=== PATIENT | male | born 1995 | race Caucasian/White ===

== ENCOUNTER 2017-03-21 05:14 | Inpatient (IN) | payer OTHER ==
[2017-03-21] MEDS ORDERED: HYDROCODONE/APAP (5/325) TAB PO (07:00)
[2017-03-21] MEDS ORDERED: ONDANSETRON 4 MG INJ IV (07:00)
[2017-03-21] MEDS ORDERED: ACETAMINOPHEN 325 MG TAB PO (07:00)
[2017-03-21] MEDS: NICOTINE (14 MG/24 HR) PATCH TRANSDERM (09:00)
[2017-03-21 13:59] LABS: ADD MAN DIFF? NO
[2017-03-21 14:01] LABS: WHITE BLOOD COUNT 6.2 10^3/ul (4.8-10.8)
[2017-03-21 14:01] LABS: BASOPHIL # 0.1 10^3/ul (0.0-0.1); EOSINOPHILS # 0.2 10^3/ul (0.0-0.5); EOSINOPHILS % 3.1 % (0.0-7.0); HEMATOCRIT 35.7 % (42.0-52.0); HEMOGLOBIN 12.8 g/dl (14.0-18.0); LYMPHOCYTES # 1.9 10^3/ul (0.8-2.9); LYMPHOCYTES % 30.6 % (15.0-51.0); MEAN CORPUSCULAR HEMOGLOBIN 31.2 pg (29.0-33.0); MEAN CORPUSCULAR HGB CONC 35.9 g/dl (32.0-37.0); MEAN CORPUSCULAR VOLUME 87.1 fl (82.0-101.0); MEAN PLATELET VOLUME 10.5 fl (7.4-10.4); MONOCYTE # 0.7 10^3/ul (0.3-0.9); MONOCYTES % 10.7 % (0.0-11.0); NEUTROPHIL # 3.4 10^3/ul (1.6-7.5); NEUTROPHILS % 54.4 % (39.0-77.0); PLATELET COUNT 232 10^3/UL (140-415)
[2017-03-21 14:18] LABS: ANION GAP 16 (8-16); BLOOD UREA NITROGEN 36 mg/dl (7-20); CALCIUM 9.3 mg/dl (8.4-10.2); CARBON DIOXIDE 24 mmol/L (21-31); CHLORIDE 109 mmol/L (97-110); CREATINE KINASE 48 IU/L (23-200); CREATININE 3.06 mg/dl (0.61-1.24); GLUCOSE 101 mg/dl (70-220); MAGNESIUM 1.8 mg/dl (1.7-2.5); SODIUM 145 mmol/L (135-144)
[2017-03-21 14:27] LABS: B-TYPE NATRIURETIC PEPTIDE 592 PG/ML (0-125)
[2017-03-21] MEDS: SOD CHLORIDE 0.9% 1,000 ML IV (15:00)
[2017-03-21 22:48] LABS: ADD UMIC NO; UR ASCORBIC ACID NEGATIVE (NEGATIVE); UR BILIRUBIN (Dip) NEGATIVE (NEGATIVE); UR BLOOD (Dip) NEGATIVE (NEGATIVE); UR CLARITY CLEAR (CLEAR); UR COLOR STRAW (YELLOW); UR GLUCOSE (Dip) NEGATIVE (NEGATIVE); UR KETONES (Dip) NEGATIVE (NEGATIVE); UR LEUKOCYTE ESTERASE (Dip) NEGATIVE Leu/ul (NEGATIVE); UR NITRITE (Dip) NEGATIVE (NEGATIVE); UR SPECIFIC GRAVITY (Dip) 1.008 (1.003-1.030); UR TOTAL PROTEIN (Dip) NEGATIVE (NEGATIVE); UR UROBILINOGEN (Dip) NEGATIVE (NEGATIVE)
[2017-03-21 23:02] LABS: SODIUM,URINE RANDOM 73 mmol/L (30-90)
[2017-03-22] MEDS: SOD CHLORIDE 0.9% 1,000 ML IV (01:55)
[2017-03-22 05:55] LABS: MAGNESIUM 1.5 mg/dl (1.7-2.5)
[2017-03-22 05:57] LABS: ANION GAP 14 (8-16); BLOOD UREA NITROGEN 27 mg/dl (7-20); CALCIUM 8.9 mg/dl (8.4-10.2); CARBON DIOXIDE 26 mmol/L (21-31); CHLORIDE 110 mmol/L (97-110); CREATININE 2.02 mg/dl (0.61-1.24); GLUCOSE 122 mg/dl (70-220); POTASSIUM 3.5 mmol/L (3.5-5.1); SODIUM 146 mmol/L (135-144)
[2017-03-22] MEDS: NICOTINE (14 MG/24 HR) PATCH TRANSDERM (08:47)
[2017-03-22] MEDS: SOD CHLORIDE 0.45% 1,000 ML IV ×2 (11:13→23:08)
[2017-03-22] MEDS: MAGNESIUM SULFATE 3 GM in DEXTROSE 5% 100 ML IVPB (11:13)
[2017-03-23] MEDS: SOD CHLORIDE 0.45% 1,000 ML IV ×2 (05:30→10:36)
[2017-03-23 05:40] LABS: PHOSPHORUS 2.5 mg/dl (2.5-4.9)
[2017-03-23 05:40] LABS: MAGNESIUM 1.6 mg/dl (1.7-2.5)
[2017-03-23 05:43] LABS: ANION GAP 12 (8-16); BLOOD UREA NITROGEN 18 mg/dl (7-20); CALCIUM 9.4 mg/dl (8.4-10.2); CARBON DIOXIDE 28 mmol/L (21-31); CHLORIDE 106 mmol/L (97-110); CREATININE 1.37 mg/dl (0.61-1.24); GLUCOSE 131 mg/dl (70-220); POTASSIUM 4.1 mmol/L (3.5-5.1); SODIUM 142 mmol/L (135-144)
[2017-03-23] MEDS: NICOTINE (14 MG/24 HR) PATCH TRANSDERM (09:00)
[2017-03-23] MEDS: MAGNESIUM SULFATE 4 GM/100 ML 100 ML IVPB (10:35)
[2017-03-24 05:50] LABS: ANION GAP 12 (8-16); B-TYPE NATRIURETIC PEPTIDE 138 PG/ML (0-125); BLOOD UREA NITROGEN 15 mg/dl (7-20); CALCIUM 9.2 mg/dl (8.4-10.2); CARBON DIOXIDE 29 mmol/L (21-31); CHLORIDE 107 mmol/L (97-110); GLUCOSE 111 mg/dl (70-220); POTASSIUM 4.3 mmol/L (3.5-5.1); SODIUM 144 mmol/L (135-144)
[2017-03-24] MEDS: NICOTINE (14 MG/24 HR) PATCH TRANSDERM (09:00)
== END 2017-03-24 13:25 | disposition home or self-care (01) | DRG 683 ==
LOC: MS1 05:14
DX: N17.9 Acute kidney failure, unspecified (principal); E87.0 Hyperosmolality and hypernatremia; R00.1 Bradycardia, unspecified; F12.10 Cannabis abuse, uncomplicated; Z87.891 Personal history of nicotine dependence
CPT/HCPCS: 76775; 80048; 81003; 82550; 83735; 83880; 84100; 84300; 85025; 93306

== ENCOUNTER 2018-06-05 21:27 | Emergency (ER) | payer OTHER ==
[2018-06-06] MEDS: IBUPROFEN 600 MG TAB PO (01:31)
== END 2018-06-06 01:49 | disposition home or self-care (01) ==
LOC: FTE 21:27
DX: K62.89 Other specified diseases of anus and rectum (principal); F17.210 Nicotine dependence, cigarettes, uncomplicated
CPT/HCPCS: 99282; Z7502

== ENCOUNTER 2018-06-11 09:07 | Emergency (ER) | payer OTHER ==
[2018-06-11] MEDS: SOD CHLORIDE 0.9% 1,000 ML IV (10:11)
[2018-06-11 10:15] LABS: ADD MAN DIFF? NO
[2018-06-11 10:18] LABS: WHITE BLOOD COUNT 5.6 10^3/ul (4.8-10.8)
[2018-06-11 10:18] LABS: BASOPHIL # 0.1 10^3/ul (0.0-0.1); BASOPHILS % 0.9 % (0.0-2.0); EOSINOPHILS # 0.1 10^3/ul (0.0-0.5); EOSINOPHILS % 2.2 % (0.0-7.0); HEMATOCRIT 47.4 % (42.0-52.0); HEMOGLOBIN 16.4 g/dl (14.0-18.0); LYMPHOCYTES % 35.5 % (15.0-51.0); MEAN CORPUSCULAR HEMOGLOBIN 30.8 pg (29.0-33.0); MEAN CORPUSCULAR HGB CONC 34.6 g/dl (32.0-37.0); MEAN CORPUSCULAR VOLUME 89.1 fl (82.0-101.0); MEAN PLATELET VOLUME 9.9 fl (7.4-10.4); MONOCYTE # 0.4 10^3/ul (0.3-0.9); MONOCYTES % 6.5 % (0.0-11.0); NEUTROPHILS % 54.7 % (39.0-77.0); PLATELET COUNT 259 10^3/UL (140-415); RED BLOOD COUNT 5.32 10^6/ul (4.70-6.10); RED CELL DISTRIBUTION WIDTH 11.2 % (11.5-14.5)
[2018-06-11 10:39] LABS: ADD UMIC YES; UR ASCORBIC ACID NEGATIVE (NEGATIVE); UR BILIRUBIN (Dip) NEGATIVE (NEGATIVE); UR BLOOD (Dip) NEGATIVE (NEGATIVE); UR CLARITY CLOUDY (CLEAR); UR COLOR YELLOW (YELLOW); UR GLUCOSE (Dip) NEGATIVE (NEGATIVE); UR KETONES (Dip) NEGATIVE (NEGATIVE); UR LEUKOCYTE ESTERASE (Dip) TRACE Leu/ul (NEGATIVE); UR NITRITE (Dip) NEGATIVE (NEGATIVE); UR RBC 1 /HPF (0-5); UR SPECIFIC GRAVITY (Dip) 1.027 (1.003-1.030); UR TOTAL PROTEIN (Dip) NEGATIVE (NEGATIVE); UR UROBILINOGEN (Dip) 2+ mg/dL (NEGATIVE); UR WBC 21 /HPF (0-5)
[2018-06-11 10:46] LABS: ALANINE AMINOTRANSFERASE 16 IU/L (13-69); ALBUMIN 4.9 g/dl (3.3-4.9); ALBUMIN/GLOBULIN RATIO 1.68; ALKALINE PHOSPHATASE 64 IU/L (42-121); ANION GAP 10 (5-13); ASPARTATE AMINO TRANSFERASE 17 IU/L (15-46); BILIRUBIN,INDIRECT 1.5 mg/dl (0-1.1); BILIRUBIN,TOTAL 1.5 mg/dl (0.2-1.3); BLOOD UREA NITROGEN 23 mg/dl (7-20); CALCIUM 9.9 mg/dl (8.4-10.2); CARBON DIOXIDE 30 mmol/L (21-31); CHLORIDE 103 mmol/L (97-110); CREATININE 0.91 mg/dl (0.61-1.24); Estimated GFR > 60 mL/min (>60); GLUCOSE 95 mg/dl (70-220); LIPASE 37 U/L (23-300); POTASSIUM 3.9 mmol/L (3.5-5.1); SODIUM 143 mmol/L (135-144); TOTAL PROTEIN 7.8 g/dl (6.1-8.1)
== END 2018-06-11 12:29 | disposition home or self-care (01) ==
LOC: FTE 09:07
DX: K62.89 Other specified diseases of anus and rectum (principal); F17.210 Nicotine dependence, cigarettes, uncomplicated; N39.0 Urinary tract infection, site not specified
CPT/HCPCS: 36415; 80053; 81001; 83690; 85025; 99284-25